=== PATIENT | male | born 1980 | race Caucasian/White ===

== ENCOUNTER → 2024-07-23 | Outpatient (CLI) | payer BC, SELFPAY ==
[2024-07-23 10:51] LABS: Quantiferon-TB* See Sep Rpt
[2024-07-23 11:26] LABS: Basophils # (Auto) 0.1 Thou/mm3 (0.0-0.2); Basophils % (Auto) 1 % (0-2.5); Eosinophils # (Auto) 0.2 Thou/mm3 (0.0-0.5); Eosinophils % (Auto) 4 % (0-10); Hematocrit 40.9 % (41.0-53.0); Hemoglobin 13.7 g/dL (13.5-16.0); Immature Granulocytes % (Auto) 0 % (0-0); Immature Granulocytes Auto 0.02 Thou/mm3 (0.00-0.00); Lymphocytes # (Auto) 2.2 Thou/mm3 (1.0-4.8); Lymphocytes % (Auto) 35 % (10-50); Mean Corpuscular HGB Conc 33.5 g/dl (31.0-37.0); Mean Corpuscular Hemoglobin 27.5 pg (25.0-35.0); Mean Corpuscular Volume 82 fL (80-100); Monocytes # (Auto) 0.4 Thou/mm3 (0.0-0.8); Monocytes % (Auto) 7 % (0-12); Neutrophils # (Auto) 3.4 Thou/mm3 (1.8-7.7); Neutrophils % (Auto) 54 % (37-80); Nucleated Red Blood Cell % 0 /100 WBC (0); Platelet Count 173 Thou/mm3 (140-440); RDW Standard Deviation 36.5 fL (35.1-43.9); Red Blood Count 4.98 Miln/mm3 (4.50-5.90); White Blood Count 6.3 Thou/mm3 (3.8-10.6)
[2024-07-23 11:39] LABS: Alanine Aminotransferase 76 U/L (10-49); Albumin, Serum 4.3 gm/dL (3.5-5.0); Albumin/Globulin Ratio 1.7 (1.2-2.2); Alkaline Phosphatase 111 U/L (46-116); Anion Gap 10 (7-16); Aspartate Amino Transferase 39 U/L (0-34); BUN/Creatinine Ratio 16 Ratio (12-20); Bilirubin,Total 0.4 mg/dL (0.3-1.2); Blood Urea Nitrogen 18 mg/dL (9-23); Calcium 9.4 mg/dL (8.3-10.6); Calcium (Corrected) 9.4 mg/dL (8.5-10.1); Carbon Dioxide 26.5 mMol/L (20.0-31.0); Chloride 105 mMol/L (98-107); Creatinine (Component) 1.1 mg/dL (0.6-1.3); Globulin 2.5 gm/dL (2.3-3.5); Glucose 126 mg/dL (74-106); Osmolality,Calculated 285 (275-295); Potassium 4.2 mMol/L (3.4-5.1); Sodium 141 mMol/L (136-145); Total Protein 6.8 gm/dL (5.7-8.2); eGFR > 60 See Note
[2024-07-23 14:57] LABS: Cocci Serology, IgM Negative (Negative)
[2024-07-24 12:13] LABS: Cocci Serology, IgG Negative (Negative)
== END | disposition home or self-care (01) ==
LOC: COPL 10:27
PROVIDERS: PCP Family Medicine; Referring Provider Registered Nurse; Visit Provider Registered Nurse
DX: Z00.00 Encounter for general adult medical examination without abnormal findings (principal); R04.2 Hemoptysis; B34.9 Viral infection, unspecified; B38.89 Other forms of coccidioidomycosis; Z13.29 Encounter for screening for other suspected endocrine disorder
CPT/HCPCS: 36415; 80053; 85025; 86331; 86480; 86635

== ENCOUNTER → 2024-12-21 | Outpatient (CLI) | payer BC, SELFPAY ==
--- NOTE | 2024-12-21 16:35 | XR_ITS ---
Examination: Fingers, left hand first digit 3 views Technique: AP, oblique, lateral views left hand first digit 3 views. Exam date and time: December 21, 2024 1436 hours INDICATIONS: Left thumb pain 2 weeks. FINDINGS: Moderate osteoarthritis interphalangeal joint first digit Mild osteoarthritis first carpometacarpal joint and first metacarpal phalangeal joint No fractures No cortical bone destruction IMPRESSION: Osteoarthritis first digit as above
[2024-12-21 17:02] LABS: Misc Send Out* See Sep Rpt
[2024-12-21 17:46] LABS: Cardiac Risk Estimate 4.6 RATIO (4.0-6.7); Cholesterol 156 mg/dL (132-200); HDL Cholesterol 34 mg/dL (40-60); LDL Cholesterol,Calculated 94 mg/dL (0-130); Triglycerides 140 mg/dL (30-150); Uric Acid 6.5 mg/dL (3.7-9.2)
== END | disposition home or self-care (01) ==
LOC: CDIM 16:31 → COPL 16:46
PROVIDERS: PCP Family Medicine; Referring Provider Nurse Practitioner Family; Visit Provider Radiology Diagnostic Radiology
DX: M19.042 Primary osteoarthritis, left hand (principal); F10.20 Alcohol dependence, uncomplicated; R03.0 Elevated blood-pressure reading, without diagnosis of hypertension
CPT/HCPCS: 36415; 73140; 80061; 84550